=== PATIENT | male | born 1960 | race Caucasian/White ===

== ENCOUNTER → 2020-03-08 | Outpatient (CLI) | payer OTHER ==
[~2020-03-08] MED LIST: DOCU-109 PO; ONDA8TAB9 PO; OXYC1TAB15 PO
== END | disposition home or self-care (01) ==
LOC: SURGPAT 13:13
PROVIDERS: ATTEND Orthopaedic Surgery Sports Medicine
DX: Z01.818 Encounter for other preprocedural examination (principal); Z11.59 Encounter for screening for other viral diseases; S46.012A Strain of muscle(s) and tendon(s) of the rotator cuff of left shoulder, initial encounter; X58.XXXA Exposure to other specified factors, initial encounter; Y93.89 Activity, other specified; Y92.89 Other specified places as the place of occurrence of the external cause; Y99.8 Other external cause status
CPT/HCPCS: 36415; U0003

== ENCOUNTER 2020-03-13 05:55 | Day surgery (SDC) | payer OTHER ==
[~2020-03-13] VITALS: Ht 162.6 cm; Wt 74.8 kg
[2020-03-13] MEDS ORDERED: ceFAZolin SODIUM IV Push 1 GM VIAL. IVP PRN (06:00)
[2020-03-13] MEDS ORDERED: PROCHLORPERAZINE 10 MG/2 ML VIAL. IV PRN (07:00)
[2020-03-13] MEDS ORDERED: IV RINGERS,LACTATED 1000ML 1,000 ML IV SCH (07:00)
[2020-03-13] MEDS ORDERED: MORPHINE SULFATE 2 MG/ML VIAL. IV PRN (07:00)
[2020-03-13] MEDS ORDERED: ONDANSETRON PF 4 MG/2 ML VIAL. IV PRN (07:00)
[2020-03-13] MEDS ORDERED: HYDROmorphone 2 MG/ML VIAL IV PRN (07:00)
[2020-03-13] MEDS ORDERED: fentaNYL PF VIAL 100 MCG/2 ML VIAL IV PRN ×2 (07:00)
[2020-03-13] MEDS ORDERED: EPINEPHrine 1 MG/ML VIAL ONE (07:04)
[2020-03-13] MEDS ORDERED: DEXAMETHASONE SOD PHOS 20 MG/5 ML VIAL. ONE (07:04)
[2020-03-13] MEDS ORDERED: LIDOCAINE 1% PF 2 ML VIAL. ONE (07:04)
[2020-03-13] MEDS ORDERED: BUPIVACAINE MPF 0.5% 30 ML VIAL. ONE (07:04)
[2020-03-13] MEDS ORDERED: MIDAZOLAM HCL/PF 2 MG/2 ML VIAL. ONE ×2 (07:04→07:10)
[2020-03-13] MEDS ORDERED: PROPOFOL 10 MG/ML (20ML) VIAL. IV ONE (07:10)
[2020-03-13] MEDS ORDERED: ROCURONIUM 50 MG/5 ML VIAL. ONE (07:10)
[2020-03-13] MEDS ORDERED: ONDANSETRON PF 4 MG/2 ML VIAL. ONE (07:10)
[2020-03-13] MEDS ORDERED: fentaNYL PF VIAL 100 MCG/2 ML VIAL ONE (07:10)
[2020-03-13] MEDS ORDERED: DEXAMETHASONE SOD PHOS 4 MG/ML VIAL ONE (07:10)
[2020-03-13] MEDS ORDERED: LIDOCAINE 2% PF 5 ML VIAL. ONE (07:10)
[2020-03-13] MEDS ORDERED: EPINEPHrine VIAL 30 MG/30 ML VIAL ONE (07:16)
[2020-03-13] MEDS ORDERED: GLYCOPYRROLATE 1 MG/5 ML VIAL. ONE (08:21)
[2020-03-13] MEDS ORDERED: NEOSTIGMINE METHYLSULFATE 5 MG/5 ML SYRINGE. ONE (08:21)
[2020-03-13] MEDS ORDERED: SEVOFLURANE 61 TO 120 MINUTES. IH ONE (09:32)
[2020-03-13] MEDS ORDERED: OXYC1TAB15 PO (09:41)
[2020-03-13] MEDS ORDERED: DOCU-109 PO (09:42)
[2020-03-13] MEDS ORDERED: ONDA8TAB9 PO (09:42)
--- NOTE | 2020-03-13 10:03 | DISCH ---
DISCHARGE INSTRUCTIONS Condition on Discharge Condition on Discharge: Stable Activity After Discharge Activity Instructions for Disc: Other, see below Other activity instructions: arm to remain in sling Bathing Instructions: Shower-keep dressing dry Weight Bearing Status after Di: Non weight bearing Diet after Discharge Diet after Discharge: Regular Wound Incision Care Wound/Incision Care: Ice to area for comfort, Keep wound/cast CDI, Change dressing Contacting the DR. after DC Call your doctor for: Concerns you may have Follow-Up Follow up with: Katie in 2 wks CINDY POND II, MD Mar 13, 2020 10:03
--- NOTE | 2020-03-13 10:22 | PDOC4 ---
Operative Note Operative Note Date of procedure: 03/13/2020 Surgeon: Etienne Pond Surgery Attendant: Mynor Florian Preoperative diagnosis: Left shoulder massive rotator cuff tear Postoperative diagnosis: Same Procedure performed: #1 left shoulder arthroscopic rotator cuff tear 2. Open subpectoral biceps tenodesis Anesthesia: General plus regional nerve block Complications: None Findings: Massive rotator cuff tear, good tendon mobility, subluxed and split biceps tendon Humeral head cartilage showed some grade 2-3 changes, grade 1 changes at the glenoid. No loose bodies Upper border of subscapularis was tore Infraspinatus was intact Labrum was intact Components inserted: [employer] Helacoil anchor x4, footprint for lateral row fixation x2 Reason for procedure: Patient is a very pleasant 59-year-old gentleman who had acute loss of shoulder function after a fall in September. Please see my outpatient notes for further details. We had a discussion of the risks, bene fits, alternatives to the above surgery and he wished to proceed after the pandemic had passed. Description of procedure: Patient was greeted in the preoperative area by myself or the correct extremity was verified and marked. He had successful placement of a regional nerve block by the anesthesiology team. He was taken to the operative suite his antibiotics were started as he was brought back. Once in the operating room, he was transferred gently supine to the operating room table and underwent successful induction of a general anesthetic. He was then set up in the beachchair position with a large pad under his legs, maintaining his C- spine in neutral position. We then proceeded to prep and drape left upper extremity and shoulder girdle in her usual sterile fashion and conducted our standard preoperative timeout. After this, I palpated marked surface anatomy and ajit lines for my planned portal incisions. I then used a spinal needle to localize a posterior superior portal and incised skin accordance with this and then introduced the blunt arthroscopic trocar followed by the camera. I then used a spinal needle to localize an anterosuperior portal and after dilating this hole, conducted my diagnostic arthroscopy with above-noted findings. At this point, I removed the arthroscopic instrumentation and directed my attention to performing his biceps tenodesis. I repositioned his arm, palpated for the lower border of the pectoralis major tendon and incised skin perpendicularly to this and an axillary skin crease. I bluntly dissected under the pectoralis major, placing a 90 degrees retractor over top of the humeral head and palpating for the bicipital tendon, I then exposed this using tenotomy's, clamped it at the proximal aspect of my visualized field and then proceeded to place a large suture fix anchor into the humerus, shuttling the suture limbs through in a lasso configuration with a [employer]. I then tied these down securely and transected the biceps tendon between my hemostat and the suture anchors. I then reposition the arm, and introduce the arthroscopic instrumentation into the subacromial space. I then used a spinal to localize a lateral portal and dilated this hole as well. I then performed a bursectomy with combination of electrocautery device and shaver. After I had appropriate visualization of the tendon, I tested his mobility and felt the repair was appropriate. I then placed my 4 suture anchors and created an accessory anterolateral posterior lateral stab incisions for suture management. I then shuttled the suture limbs through a simple configuration and tied these down using arthroscopic knot tying techniques, I cut one limb from each suture saving the remainder of the limb for the lateral row fixation. After tying all leads down, I incorporated the posterior 3 single suture limbs from my repair into a footprint at bilateral row, repeating this maneuver for my anteriormost 4 suture limbs. Overall is happy with the repair, it was stable to probing and gentle rotation of the arm. We let all arthroscopic fluid out of the shoulder. The portals and stab incisions were closed with simple interrupted 3-0 nylon. The biceps tendon was delivered from the operative field. After this, inverted interrupted 2-0 Vicryl was used for subcutaneous tissue and running 3-0 Monocryl for skin in a subcuticular fashion at the axillary incision. Sterile bulky dressing was applied. Left upper extremity was placed to an abduction pillow sling. Patient tolerated surgery well. He was laid gently supine and transferred in supine to the recovery room cart and taken to PACU stable extubated condition. All counts were correct x2 prior to wound closure. No complications. Postoperative plan is to discharge him home, he will remain nonweightbearing in the sling. I will see him back in 2 weeks and we will get him started on physical therapy then. ETIENNE POND II, MD Mar 13, 2020 10:22
[2020-03-13 10:40] VITALS: BP 113/71
== END 2020-03-13 11:20 | disposition home or self-care (01) ==
LOC: SURG 05:55
PROVIDERS: ATTEND Orthopaedic Surgery Sports Medicine
DX: M75.112 Incomplete rotator cuff tear or rupture of left shoulder, not specified as traumatic (principal); M66.812 Spontaneous rupture of other tendons, left shoulder; G47.30 Sleep apnea, unspecified; Z98.52 Vasectomy status
CPT/HCPCS: 23430; 29827; 64415; C1713; C1876; J0171; J0690; J1100; J2250; J2405; J2704; J2710; J3010; J3490; J7120